=== PATIENT | male | born 1940 | race Caucasian/White ===

== ENCOUNTER → 2024-08-16 07:16 | Outpatient (REF) | payer MEDICARE, BC, SELFPAY | LOC: RCS 07:16 | PROVIDERS: ATTENDING PHYSICIAN Internal Medicine Cardiovascular Disease; FAMILY PHYSICIAN Nurse Practitioner Family | DX: Z95.2 Presence of prosthetic heart valve (principal); R06.02 Shortness of breath | CPT/HCPCS: 78452; 93017; 93225; 93226; A9500 ==

== ENCOUNTER → 2024-08-18 09:50 | Outpatient (REF) | payer MEDICARE, BC, SELFPAY ==
[2024-08-18 11:10] LABS: Blood Urea Nitrogen 29 mg/dl (9-20); Calcium 9.7 mg/dl (8.4-10.2); Carbon Dioxide 30 mmol/L (22-30); Chloride 102 mmol/L (98-107); Glucose 97 mg/dl (70-99); Potassium 4.9 mmol/L (3.5-5.1); Sodium 142 mmol/L (135-145); eGFR 59.26
== END ==
LOC: REG 09:50
PROVIDERS: ATTENDING PHYSICIAN Internal Medicine Cardiovascular Disease
DX: Z95.2 Presence of prosthetic heart valve (principal)
CPT/HCPCS: 36415; 80048

== ENCOUNTER → 2024-09-07 10:12 | Outpatient (REF) | payer MEDICARE, BC, SELFPAY | LOC: RCS 10:12 | PROVIDERS: ATTENDING PHYSICIAN Internal Medicine Cardiovascular Disease; FAMILY PHYSICIAN Nurse Practitioner Family | DX: Z95.2 Presence of prosthetic heart valve (principal) | CPT/HCPCS: 93306 ==

== ENCOUNTER 2024-09-17 11:16 | Inpatient (IN) | payer MEDICARE, BC, SELFPAY ==
[2024-09-10 10:20] VITALS: BMI 28.7
[2024-09-17] VITALS (17 sets, daily range): BP systolic 127–168; BP diastolic 56–113; BMI 26.4
[2024-09-17] MEDS: LOW STRENGTH ASPIRIN 324 MG PO (07:36)
[2024-09-17 08:57] LABS: ACT-LR - POC 265 Seconds (116-155)
[2024-09-17 09:14] LABS: ACT-LR - POC 356 Seconds (116-155)
[2024-09-17 09:40] LABS: ACT-LR - POC 279 Seconds (116-155)
--- NOTE | 2024-09-17 11:04 | ITS.CL.PN ---
[employer] Specialist - Procedure Note
Procedure
Procedure Note:
CARDIAC CATHETERIZATION REPORT
Date of Procedure: 09/17/24
Referring: Dr. Ezekiel Land MD
Indication: angina, positive nuclear stress test
PROCEDURE:
1. Right heart catheterization
2. Left heart catheterization
3. Coronary angiography
4. IVUS diagonal artery
5. PCI with VALERIO to diagonal artery
6. IVUS obtuse marginal artery
7. PCI with VALERIO to obtuse marginal artery
8. IVUS of LCx artery
9. PCI with VALERIO to LCx artery
ACCESS:
6 Liberian right radial artery (closed with TR band)
5 Liberian right antecubital vein
CATHETERS:
1. 5 Liberian balloon wedge/Sheffield-Wing
2. 6 Liberian JL3.5
3. 6 Liberian JR4
4. 6 Liberian XB3.5 guide catheter
HEMODYNAMIC DATA
LV 157/16 (EDP 33) mmHg
AO 151/71 (mean 97) mmHg
RA 14 mmHg
RV 61/6 (EDP 15) mmHg
PA 75/28 (mean 46) mmHg
PCWP 32 mmHg
CO/CI 4.7/2.4 mmHg
PVR 3.0
SVR 1805
CORONARY ANGIOGRAPHY
Dominance: right
LM: large without disease
LAD: moderate caliber vessel giving rise to a small ramus/D1, moderate caliber D2, and moderate caliber D3. There is is a sub-total occlusion of the D3 with EVAN 2 flow distally.
LCx: very large caliber vessel giving rise to a large branching OM1, moderate caliber OM2. There is a patent stent in the proximal aspect of the OM1 with mild ISR and a focal 80% stenosis at the distal stent edge. There is a focal 80% stenosis in
the mid-LCx just after the OM1. There are otherwise mild luminal irregularities.
RCA: moderate caliber vessel giving rise to a moderate caliber RPDA. There is a widely patent stents in the RPDA. There is a 40% focal stenosis in the proximal vessel, 50% focal stenosis in the mid-vessel
INTERVENTIONS - IVUS-guided PCI with DESx3 to D3, OM1, and mid-LCx
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 Recent non-invasive testing had demonstrated LAD territory hypokinesis as well as extensive stress abnormalities in the anterior, anterolateral, apical, and
inferior ferrer. The decision was made to proceed with PCI of the sub-totally occluded diagonal vessel and proceed with PCI of the OM1 and LCx if the patient was tolerating the procedure (given his high filling pressures). 40 IV lasix was given at
the start of the intervention. The left main was engaged with a XB3.5 guide catheter and a short Runthrough coronary wire placed in the diagonal. Initial lesion preparation was performed with a 2.0x12 balloon with mormon of flow. IVUS was
performed demonstrating a 2.5 mm distal reference diameter and 2.75 mm proximal reference diameter. A 2.5x22 mm Brock Latimer VALERIO was selected and deployed at 16 sulaiman. Post-dilation was then performed with a 2.75x15 mm NC from prox edge to mid-stent
at 18 sulaiman. Final IVUS demonstrate excellent stent expansion, sizing, and apposition, with no edge dissections. Final angiography demonstrated an excellent result. The wire was then redirected to the OM1. Initial lesion preparation was performed with
the 2.75x15 NC taken to nominal pressure. IVUS demonstrated a 3.25 mm reference diameter. A 3.0x18 Sturgis Latimer VALERIO was selected and deployed at 16 sulaiman followed by post-dilation with a 3.25x15 mm NC balloon to 20 sulaiman throughout. Final IVUS
demonstrate excellent stent expansion, sizing, and apposition, with no edge dissections. Finally, the wire was redirected to the distal LCx. Initial lesion preparation was performed with the 2.0 mm balloon. IVUS was performed and demonstrated a 2.5
mm reference diameter. A 2.5 mm Brock Latimer VALERIO was deployed at 12 sulaiman. IVUS demonstrate proximal malapposition due to undersizing. The 2.75 mm NC was then used to post-dilated from mid stent back at high pressure. Final angiographic result was
outstanding. The wire and guide were removed and the patient loaded with 600 mg Plavix. The patient tolerated the procedure well.
RADIATION:
Radiation dose (mGy): 23.8
DAP (cm2.Gy): 1424.5
Fluoroscopy time (minutes): 99.5
CONCLUSIONS:
1. Elevated biventricular filling pressures, severe predominantly post-capillary pulmonary hypertension, and normal cardiac output.
2. Severe two-vessel coronary artery disease in a right dominant system.
3. Successful IVUS-guided and optimized PCI of the D3 with placement of a 2.5x22 mm Sturgis Latimer VALERIO, post-dilated to high pressure with a 2.75 mm NC balloon.
3. Successful IVUS-guided and optimized PCI of the OM1 with placement of a 3.0x18 mm Brock Latimer VALERIO, post-dilated to high pressure with a 3.25 mm NC balloon.
3. Successful IVUS-guided and optimized PCI of the D3 with placement of a 2.5x12 mm Brock Latimer VALERIO, post-dilated to high pressure with a 2.75 mm NC balloon.
RECOMMENDATIONS:
1. Expectant management after cardiac catheterization via right radial artery.
2. Admit for overnight monitoring of volume status/renal function. 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
3. Continue DAPT with ASA/Plavix
4. Cont. medical therapy for CAD/HFrEF with BB/ARB, consider addition of SGLT2i.
4. Will need intensification of anti-lipid therapy given CAD disease progression despite LDL 69.
Copy to: Dr. Ezekiel Land MD (cardiology); ERIC Hodgson (PCP)
Signed: Brian Collazo MD, PhD
--- NOTE | 2024-09-17 12:15 | PTCARENOTE ---
Patient admitted to IVU s/p PCI right radial. TR band right radial CDI, POX 94-97%. Right brachial dressing CDI. Reminded of precautions. Assisted to the bathroom, voided large amounts of yellow urine, voided another 400 cc in the urinal. He is AO
x3, [place], b/l heating aids present. SR on telemetry, BP 136/73, call john in reach
--- NOTE | 2024-09-17 15:29 | CM ---
Chart reviewed. Patient is independent of ADLS, lives alone in a [address], 1 [facility], ambulates with a SPC. Patient's daughter lives in [place], he has a friend to assist with no needs. Plan is for the patient to return home. CM to follow
--- NOTE | 2024-09-17 17:17 | W.PN.CD ---
Today's Communication / Plan
-
successful PCI to diagonal, OM1, LCx
cont. DAPT
s/p 40 IV lasix in lab
pending volume status tomorrow will consider increasing home diuretic regimen
running SGLT2i for cost
Impression / Plan
-
Mr. Lawler is a 84 year old man with past medical history of LFLG s/p S3 TAVR 2022, CAD s/p PCI to LCx/RCA (2017), RCA (2022), HTN, HLD, CVA, s/p R CEA 2005, who has experienced worsening chest pressure and HERNANDEZ. He was referred for right and
left heart catheterization which demonstrated elevated biventricular filling pressures and several two vessel CAD. He had successful PCI to the diagonal, OM1, and LCx and was admitted overnight for observation.
# CAD s/p PCI to diagonal, OM1, LCx
-s/p Plavix reload (unsure of home compliance)
-cont. DAPT with asa/plavix
-given disease progression despite LDL 69, will need intensification of anti-lipid regimen, will initiate ezetimibe here but likely will need PCSK9i given prior inability to tolerate higher dose statin
-cont. home metop, omlesartan; room to uptitrate
-monitor BNP, volume status tomorrow
# HFrEF, EF 40
-home BB/ARB
-will run SGLT2i for cost
Physical Exam
Vital Signs/Labs
Vital Signs
Temp Pulse Resp BP Pulse Ox
36.4 C 80 20 145/78 98
09/17/24 15:50 09/17/24 15:00 09/17/24 15:50 09/17/24 15:00 09/17/24 15:50
09/16/24 09/17/24 09/18/24
06:59 06:59 06:59
Actual Weight 85.7 kg
Physical Exam
Constitutional: No acute distress
Cardiovascular: Rhythm & rate is regular and Pedal edema is absent
Respiratory: Respiratory effort normal
Neuro/Psych: AO x 3
Data Reviewed
-
Date of Service: September 17, 2024
Medical Decision Making: Reviewed Test Results
Labs: Labs Reviewed by me
[2024-09-17] MEDS: CRESTOR 10 MG PO (17:40)
[2024-09-17] MEDS: LOPRESSOR 50 MG PO (20:42)
--- NOTE | 2024-09-18 01:34 | PTCARENOTE ---
Patient remains sinus rhythm on the monitor with PAC's noted; Complains of leg cramps relieved by standing up; Denies N/V; Right radial site with ecchymosis noted, soft to palpation, dressing C/D/I; Right brachial dressing C/D/I; Patient remains on
room air; Call john within reach; Plan of care ongoing
[2024-09-18 04:01] VITALS: BP 139/72
[2024-09-18 04:24] VITALS: BMI 24.6
[2024-09-18 04:55] LABS: % Basophils 0.2 % (0-2); % Eosinophils 1.7 % (0-6); % Immature Granulocytes 0.5 % (0-0.5); % Lymphocytes 12.9 % (20.5-51.1); % Monocytes 9.5 % (1.7-9.3); % Neutrophils 75.2 % (42.2-75.2); Absolute Eosinophils 0.1 10^3/uL (0-0.7); Absolute Lymphocytes 1.1 10^3/uL (1.2-3.4); Absolute Monocytes 0.8 10^3/uL (0.1-0.6); Absolute Neutrophils 6.2 10^3/uL (1.4-6.5); Hematocrit 33.7 % (39.0-52.0); Hemoglobin 11.4 g/dL (13.0-18.0); Mean Corp Hgb Conc. 33.8 g/dL (33.0-37.0); Mean Corpuscular Hgb 32.2 pg (27.0-31.0); Mean Corpuscular Volume 95.2 fL (80.0-94.0); Mean Platelet Volume 12.1 fL (7.4-10.4); Nucleated Red Blood Cells % 0 % (-); Platelet Count 144 10^3/uL (130-400); Red Blood Cell Count 3.54 10^6/uL (4.70-6.10); Red Cell Dist. Width 12.7 % (11.5-14.5); White Blood Cell Count 8.2 10^3/uL (4.8-10.8)
[2024-09-18 05:18] LABS: Blood Urea Nitrogen 27 mg/dl (9-20); Calcium 8.9 mg/dl (8.4-10.2); Carbon Dioxide 30 mmol/L (22-30); Chloride 101 mmol/L (98-107); Estimated Creatinine Clearance 52 ml/min; Glucose 92 mg/dl (70-99); HDL Cholesterol 73 mg/dl; LDL Cholesterol, Calculated 51 mg/dl; Potassium 4.1 mmol/L (3.5-5.1); Sodium 140 mmol/L (135-145); Total Cholesterol 138 mg/dl (50-199); Triglyceride 73 mg/dl (10-149); Very Low Density Lipoprotein 14 mg/dl (0-30); eGFR > 60.00
[2024-09-18] MEDS: PLAVIX 75 MG PO (08:32)
[2024-09-18] MEDS: ASPIR LOW (ENTERIC COATED) 81 MG PO (08:32)
[2024-09-18] MEDS: LOPRESSOR 50 MG PO (08:32)
[2024-09-18] MEDS: ZETIA 10 MG PO (08:32)
[2024-09-18] MEDS: BENICAR 20 MG PO (08:32)
[2024-09-18 08:33] VITALS: BP 131/61
--- NOTE | 2024-09-18 08:57 | W.PN.CD ---
Today's Communication / Plan
-
IV lasix again today, home tomorrow
checking dapagliflozin for cost
Impression / Plan
-
Mr. Lawler is a 84 year old man with past medical history of LFLG s/p S3 TAVR 2022, CAD s/p PCI to LCx/RCA (2017), RCA (2022), HTN, HLD, CVA, s/p R CEA 2005, who has experienced worsening chest pressure and HERNANDEZ. He was referred for right and
left heart catheterization which demonstrated elevated biventricular filling pressures and several two vessel CAD. He had successful PCI to the diagonal, OM1, and LCx and was admitted overnight for observation.
# CAD s/p PCI to diagonal, OM1, LCx
-s/p Plavix reload (unsure of home compliance)
-cont. DAPT with asa/plavix
-given disease progression despite LDL 69, will need intensification of anti-lipid regimen, will initiate ezetimibe here but likely will need PCSK9i given prior inability to tolerate higher dose statin
-cont. home metop, omlesartan; room to uptitrate
-will dose with IV lasix again today and plan on discharge tomorrow
# HFrEF, EF 40
-home BB/ARB
-will run SGLT2i for cost
Physical Exam
Vital Signs/Labs
Vital Signs
Temp Pulse Resp BP Pulse Ox
36.1 C 70 16 139/72 96
09/18/24 04:01 09/18/24 06:00 09/18/24 08:31 09/18/24 04:01 09/18/24 08:31
09/17/24 09/18/24 09/19/24
06:59 06:59 06:59
Actual Weight 80 kg
09/18/24 04:12
09/18/24 04:12
Triglycerides 73 mg/dl (10-149) 09/18/24 04:12
LDL Cholesterol, Calc 51 mg/dl 09/18/24 04:12
VLDL Cholesterol, Calc 14 mg/dl (0-30) 09/18/24 04:12
HDL Cholesterol 73 mg/dl 09/18/24 04:12
Physical Exam
Constitutional: No acute distress
Cardiovascular: Rhythm & rate is regular
Respiratory: Respiratory effort normal
Neuro/Psych: AO x 3
Data Reviewed
-
Date of Service: September 18, 2024
Medical Decision Making: Reviewed Test Results
Labs: Labs Reviewed by me
[2024-09-18 08:58] LABS: Glycohemoglobin (HgbA1c) 5.5 % (4.0-5.6)
[2024-09-18] MEDS: LASIX 40 MG IV (09:06)
--- NOTE | 2024-09-18 11:56 | CM ---
Chart reviewed. Patient is independent of ADLS, lives alone in a 1 [facility], 1 [facility], ambulates with a SPC. Patient is not current with VN but is interested. Referral sent to [facility]. Plan is for the [facility] to [facility]. CM to follow
--- NOTE | 2024-09-18 11:58 | CM ---
Pricing on Farxiga and Jardiance through the patient's [facility]. Patient does not have a prescription plan. Patient uses discount cards.
[2024-09-18 12:21] VITALS: BP 129/66
[2024-09-18] MEDS: ALDACTONE 12.5 MG PO (12:40)
[2024-09-18] MEDS: CRESTOR 10 MG PO (17:41)
[2024-09-18] MEDS: LOVENOX 40 MG SC (17:41)
--- NOTE | 2024-09-18 18:07 | PTCARENOTE ---
Patient with no complaints. Using urinal in the bathroom to accurate outputs. Denies shortness of breath. SR with PAC's some non-sustained runs of tachycardia during the day, asymptomatic. Plan of care reviewed, call john in reach
[2024-09-18 18:50] VITALS: BP 139/79
[2024-09-18 19:41] VITALS: BP 132/83
[2024-09-18] MEDS: COREG 6.25 MG PO (19:41)
--- NOTE | 2024-09-18 21:45 | PTCARENOTE ---
Received patient at change of shift. Patient awake, alert, and oriented. Right radial site clean, dry, intact. No ecchymosis or swelling. Right brachial site clean, dry, and intact. Little ecchymosis. BP 132/83, SR 80s with BBB and PACs, 96% on room
air. Patient has no c/o of leg cramps. Discussed plan of care for evening. Patient verbalized understanding. Call john within reach.
[2024-09-18 22:19] VITALS: BP 128/66
[2024-09-19 04:55] VITALS: BP 147/74
[2024-09-19 05:51] LABS: Hematocrit 34.1 % (39.0-52.0); Hemoglobin 11.3 g/dL (13.0-18.0); Mean Corp Hgb Conc. 33.1 g/dL (33.0-37.0); Mean Corpuscular Hgb 31.7 pg (27.0-31.0); Mean Corpuscular Volume 95.5 fL (80.0-94.0); Platelet Count 143 10^3/uL (130-400); Red Blood Cell Count 3.57 10^6/uL (4.70-6.10); Red Cell Dist. Width 12.7 % (11.5-14.5)
[2024-09-19 06:09] LABS: Blood Urea Nitrogen 32 mg/dl (9-20); Calcium 8.8 mg/dl (8.4-10.2); Carbon Dioxide 29 mmol/L (22-30); Chloride 102 mmol/L (98-107); Estimated Creatinine Clearance 58 ml/min; Glucose 95 mg/dl (70-99); Sodium 138 mmol/L (135-145); eGFR > 60.00
[2024-09-19 06:16] LABS: NT-proBNP 8790 pg/ml
[2024-09-19 08:17] VITALS: BP 140/82
[2024-09-19] MEDS: ASPIR LOW (ENTERIC COATED) 81 MG PO (08:17)
[2024-09-19] MEDS: BENICAR 20 MG PO (08:17)
[2024-09-19] MEDS: PLAVIX 75 MG PO (08:17)
[2024-09-19] MEDS: ZETIA 10 MG PO (08:17)
[2024-09-19] MEDS: COREG 6.25 MG PO (08:17)
[2024-09-19] MEDS: ALDACTONE 12.5 MG PO (08:18)
--- NOTE | 2024-09-19 08:31 | PTCARENOTE ---
Pt AOx3, no complaints of pain or discomfort. Standby assist with cane. SR on tele monitor w/BBB, PACs/PVCs. VSS. Possible discharge today. Will continue to monitor, call john within reach.
--- NOTE | 2024-09-19 09:41 | W.DS.TRANS ---
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
-
Discharge Instructions:
Discharge Diagnosis/Procedures Angioplasty and stent x1 to Diagonal, x1 to Left
Circumflex, and x1 to Obtuse Marginal arteries
Diet Low Cholesterol,2 Gram Sodium,Restrict fluids to
48 oz
Driving Restrictions No driving for 24 hours
Blood Work BMP, CBC in 1 week- results to Dr. Land
Other Services Cardiac Rehab
Specialty Instructions Weigh Daily
Instructions: *CBC Heart Failure Instructions
Stand-Alone Forms: DC Instructions- Cath/EP Lab
Changes to Home Medications: Yes
Discharge Medications:
DC Medications w/original date entered in [employer]
aspirin 81 mg tablet,delayed release 81 mg PO DAILY 01/17/18
cyanocobalamin (vitamin B-12) 1,000 mcg tablet 1,000 mcg PO DAILY Supplement 01/17/18
cholecalciferol (vitamin D3) 50 mcg (2,000 unit) capsule (Vitamin D3) 50 mcg PO DAILY Supplement 12/13/22
olmesartan 20 mg tablet 20 mg PO DAILY Blood Pressure 12/13/22
clopidogrel 75 mg tablet 75 mg PO DAILY #90 tabs 12/14/22
nitroglycerin 0.4 mg sublingual tablet 0.4 mg sublingual [id number] PRN chest pain #25 tabs 12/14/22
rosuvastatin 10 mg tablet 10 mg PO QPM #30 tabs 12/14/22
Prevagen 1 tab PO DAILY Supplement 08/11/23
acetaminophen 650 mg tablet,extended release 1,300 mg PO Q12H Pain 08/11/23
furosemide 20 mg tablet 40 mg PO DAILY Fluid Retention/Swelling 09/07/24
carvedilol 6.25 mg tablet 6.25 mg PO BID #180 tabs 09/19/24
ezetimibe 10 mg tablet 10 mg PO DAILY #90 tabs 09/19/24
spironolactone 25 mg tablet 12.5 mg (1/2 x 25 mg) PO DAILY #90 tabs 09/19/24
Home Medication Changes
STOP: metoprolol tartrate
NEW: carvedilol, ezetimibe, spironolactone
Pending Results: No
--- NOTE | 2024-09-19 09:44 | W.PN.UPDATE ---
Addendum entered and electronically signed by Dae Lange MD 09/19/24 11:00:
Asked to comment on some of Dr. Collazo notes.
He is treating HFrEF. By my review of the case another way to document this case is:
Acute on chronic HFrEF
Original Note:
Update Note
Progress Note Update
Pt seen and examined. Chart reviewed. Case discussed with Dr. Collazo. Cath sit normal. Lungs clear. Tele with no VT in more than 12 hours. Few short runs of AT. Home today. Followup arranged.
--- NOTE | 2024-09-19 10:03 | PN.CDI ---
CDI
- -
CDI:
Physician Documentation Request
Admit Date: 09/17/24 11:16
Dear Cardiology,
Please review the following and provide your response in the progress notes.
Clinical Indicators:
- Patient admit for heart failure management after PCI for CAD.
- 09/18 Cardiology 'HFrEF, EF 40'
- 09/19 proBNP 8790
- 09/18 40mg IV Lasix given
- Spironolactone added on discharge
Please clarify which of the following accurately represents the acuity of the HFrEF. Possible options might include:
Acute HFrEF
Acute on chronic HFrEF
Other (please specify)
Use of terms such as suspected, likely, concern for, or probable (associated with a specific diagnosis that is being evaluated, monitored, or treated as if it exists) are acceptable and can be coded in the inpatient setting, when documented at the
time of discharge.
Thank you,
Dahlia Vega RN
CDI Specialist
Please use your independent medical judgment in providing your response.
[2024-09-19 11:16] VITALS: BP 123/76
--- NOTE | 2024-09-19 11:55 | PTCARENOTE ---
Explained discharge instructions and new medication list to pt and friend Gertrude. Pt and Gertrude verbalized understanding. Pt discharge in stable condition and with all belongings.
== END 2024-09-19 12:03 | disposition home or self-care (01) | DRG 321 ==
LOC: IVU 11:16
PROVIDERS: Nurse Practitioner; ADMITTING PHYSICIAN Student in an Organized Health Care Education/Training Program; FAMILY PHYSICIAN Nurse Practitioner Family
PROC: 4A023N8 Measurement of Cardiac Sampling and Pressure, Bilateral, Percutaneous Approach (ICD-10-PCS; 2024-09-17)
PROC: B241ZZ3 Ultrasonography of Multiple Coronary Arteries, Intravascular (ICD-10-PCS; 2024-09-17)
PROC: B2111ZZ Fluoroscopy of Multiple Coronary Arteries using Low Osmolar Contrast (ICD-10-PCS; 2024-09-17)
PROC: 027236Z Dilation of Coronary Artery, Three Arteries with Three Drug-eluting Intraluminal Devices, Percutaneous Approach (ICD-10-PCS; 2024-09-17)
DX: I25.119 Atherosclerotic heart disease of native coronary artery with unspecified angina pectoris (principal); I50.23 Acute on chronic systolic (congestive) heart failure; I47.10 Supraventricular tachycardia, unspecified; I47.19 Other supraventricular tachycardia; I11.0 Hypertensive heart disease with heart failure; E78.5 Hyperlipidemia, unspecified; I49.3 Ventricular premature depolarization; R26.2 Difficulty in walking, not elsewhere classified; M35.3 Polymyalgia rheumatica; I27.29 Other secondary pulmonary hypertension; Z60.2 Problems related to living alone; Z86.19 Personal history of other infectious and parasitic diseases; Z87.891 Personal history of nicotine dependence; Z86.73 Personal history of transient ischemic attack (TIA), and cerebral infarction without residual deficits
CPT/HCPCS: 80048; 80061; 83036; 83880; 85025; 85027; 85347; 92978; 92979; 93005; 93460; C1725; C1753; C1769; C1874; C1887; C1894; C9600; C9601; Q9967

== ENCOUNTER → 2024-09-26 15:54 | Outpatient (REF) | payer MEDICARE, BC, SELFPAY ==
[2024-09-26 16:26] LABS: Hematocrit 33.3 % (39.0-52.0); Mean Corpuscular Hgb 32.4 pg (27.0-31.0); Mean Corpuscular Volume 97.9 fL (80.0-94.0); Mean Platelet Volume 12.5 fL (7.4-10.4); Platelet Count 160 10^3/uL (130-400); Red Cell Dist. Width 12.6 % (11.5-14.5); White Blood Cell Count 5.3 10^3/uL (4.8-10.8)
[2024-09-26 16:31] LABS: Blood Urea Nitrogen 31 mg/dl (9-20); Carbon Dioxide 29 mmol/L (22-30); Chloride 99 mmol/L (98-107); Glucose 108 mg/dl (70-99); Potassium 4.5 mmol/L (3.5-5.1); Sodium 137 mmol/L (135-145); eGFR > 60.00
== END ==
LOC: CLAB 15:54
PROVIDERS: ATTENDING PHYSICIAN Internal Medicine Cardiovascular Disease; FAMILY PHYSICIAN Nurse Practitioner Family
DX: I25.10 Atherosclerotic heart disease of native coronary artery without angina pectoris (principal); I10 Essential (primary) hypertension
CPT/HCPCS: 36415; 80048; 85027

== ENCOUNTER → 2024-11-19 08:26 | Outpatient (REF) | payer MEDICARE, BC, SELFPAY ==
[2024-11-19 11:09] LABS: Albumin 4.5 g/dl (3.5-5.0); Blood Urea Nitrogen 29 mg/dl (9-20); Calcium 9.5 mg/dl (8.4-10.2); Carbon Dioxide 31 mmol/L (22-30); Chloride 102 mmol/L (98-107); Glucose 88 mg/dl (70-99); HDL Cholesterol 86 mg/dl; LDL Cholesterol, Calculated 49 mg/dl; Phosphorus 3.8 mg/dl (2.5-4.5); Potassium 4.3 mmol/L (3.5-5.1); Sodium 140 mmol/L (135-145); Total Cholesterol 147 mg/dl (50-199); Triglyceride 61 mg/dl (10-149); Very Low Density Lipoprotein 12 mg/dl (0-30); eGFR > 60.00
== END ==
LOC: REG 08:26
PROVIDERS: ATTENDING PHYSICIAN Internal Medicine Cardiovascular Disease; FAMILY PHYSICIAN Nurse Practitioner Family
DX: I25.10 Atherosclerotic heart disease of native coronary artery without angina pectoris (principal); I50.20 Unspecified systolic (congestive) heart failure; E78.5 Hyperlipidemia, unspecified
CPT/HCPCS: 36415; 80061; 80069

== ENCOUNTER 2025-02-08 09:54 | Emergency (ER) | payer MEDICARE, BC, SELFPAY ==
[2025-02-08 10:07] VITALS: BP 131/82; BMI 25.6
--- NOTE | 2025-02-08 11:11 | ED.GENMED ---
History of Present Illness
General
Chief Complaint: Musculo-Skeletal Complaint
Source: patient
Time Seen by Provider: 02/08/25 10:06
History of Present Illness
History of Present Illness:
85-year-old male with past medical history of CAD status postacute ID, aortic stenosis, hypertension, hyperlipidemia, previous CVA presenting to the emergency department for evaluation after he was unable to ambulate on his right leg due to
right-sided lower back/hip pain that began last night, continued today accompanied with tingling sensation in the right lower extremity. Patient states that he walked on his treadmill for 25 minutes last night and was doing a stationary bike and
when he went to go get up from the stationary bike he noticed the right sided hip/lower back pain which has gotten to the point where he could not even use his cane because he would still have to put too much pressure on the right leg. Patient did
use a walker this morning but noted this was even difficult. Patient denies any falls, fevers or infectious symptoms, focal weakness or numbness. Social history is noted for patient living on his own. He does take daily Plavix but no other
anticoagulant medications.
Past History
Past History
ED Past Medical History: CAD, HTN, Hypercholesterolemia, ID, Valvular disease and Other (Polymyalgia Rheumatica)
ED Past Surgical History: Cardiac (TAVR), Orthopedic (R rotator cuff repair Dr. Wan) and Other (Carotid artery Dr. Moralez)
Social History
Tobacco: Former smoker
Alcohol: None
Drug: None
Personal:
Living: with family
Employment: Retired
Review of Systems
Review of Systems
All Other Systems: ROS reviewed and negative except as documented in HPI and ROS
Phy Exam
Physical Exam
Physical Exam:
GENERAL: Alert , in no apparent distress at rest but appears uncomfortable with any movement
HEAD: NCAT
EYE: clear conjunctiva b/l
NECK: Supple
ENT: o/p clr, mmm.
CARDIAC: Regular rate and rhythm .
LUNGS: Clear breath sounds bilaterally, no acute respiratory distress, no wheezes/rales/rhonchi
ABDOMEN: Soft, without focal tenderness, no r/g, no cvat
BACK: limited range of motion 2/2 pain, pain worsens with forward flexion, tenderness to right paralumbar region, no midline bony tenderness, no rashes
NEUROLOGICAL: Alert and oriented Patellar deep tendon reflexes intact and equal bilaterally, sensation grossly intact and equal to light touch bilateral lower extremities, sensation grossly intact to light touch
SKIN: Warm and dry, skin intact.
MUSCULOSKELETAL: No edema, well perfused. EHL intact bilaterally
PSYCH: Normal and appropriate interaction.
Scores
Heart Failure Risk
Heart Failure Risk Score: Not Applicable
Heart Score for Chest Pain Patients
STEMI patient?: Not applicable
Withdrawal Assessment of Alcohol
Withdrawal Assessment Completed?: Not applicable
Course
Orders/Labs/Results
Orders:
Orders
02/08/25 10:13
Acetaminophen [Tylenol] 1,000 mg PO NOW STA
Lidocaine [Lidocaine 4% Patch] 1 patch TOPICAL NOW STA
Apply Lidocaine patch(s) to:: right lower back
CR Hip - RT w/wo Pel 2-3 Vw* Urgent
Comment:
Reason For Exam: pain
Include a pelvis x-ray?: Yes
CR Lumbar Spine Comp Min 4 Vw* Urgent
Comment:
Reason For Exam: low back pain
02/08/25 10:14
Case Management Consult ONCE
Case Management Consult: Discharge Planning
Physical Therapy Consult [Pt Eval And Treat] Urgent
Activity Level: Ambulate
Vital Signs
Initial and Last Documented VS:
Initial Vital Signs
Pulse Ox
98
02/08/25 10:05
Last Documented Vital Signs
Temp Pulse Resp BP Pulse Ox
98.2 F 64 20 131/82 97
02/08/25 10:07 02/08/25 10:07 02/08/25 10:07 02/08/25 10:07 02/08/25 10:07
MDM/Problems Addressed
Differential Diagnosis Includes:
Bursitis, tendinitis, sciatica, pathologic fracture, lumbar compression fracture, spinal stenosis, nerve impingement/disc herniation
MDM/Problems Addressed:
85-year-old male presenting to the ER for evaluation of right lower back/hip pain that started last night after he walked on the treadmill and did stationary bike exercises. He states that these exercises are routine for him and not out of the
ordinary. No trauma. No acute neurologic or vascular concerns. Will check x-ray imaging to evaluate. Will treat with Tylenol and lidocaine patch. Disposition pending. I did therapy and case management consult given patient lives on his own and
has had a hard time ambulating since last night
*Radiology
Radiology exam reviewed: preliminary read by ED provider and radiology read reviewed
*Pulse Oximetry
Patient hypoxic: no
*Critical Care Note
Total Time (30-74mins, 75-104mins- exclusive of procedures): Not Applicable
Patient Management
Escalation/DeEscalation of care consider admission/obs:
Patient's x-rays show degenerative changes, no acute fractures. He was able to ambulate steadily with physical therapy and felt as if he could go home. He did note pain control with the Tylenol and lidocaine patch. We did discuss admission if
patient did not feel comfortable being discharged home but ultimately patient did not wish to be admitted. Will send him home with a prescription for Medrol Dosepak and he may increase his Tylenol from 2 tablets once in the morning and once in the
evening to 3 tablets. I notified primary care provider who is aware and will follow-up with the patient on an outpatient basis. Patient aware of return precautions to the ER.
ED Attending Note
-
Portions of this chart may have been created with voice recognition software.� Occasional wrong word or��sound alike� substitutions may have occurred due to the inherent limitations of voice recognition software.
Discharge Plan
Departure
Patient Disposition: Home (Routine Discharge)
Date of Disposition: 02/08/25
Time of Disposition: 12:35
Patient with high blood pressure during this ER visit?: No
Discharge Problem:
Low back pain
Instructions: Low back pain - Discharge instructions
Prescriptions:
New
methylprednisolone [Medrol (Justyn)] 4 mg tablets,dose pack
4 mg PO DIRECTED Qty: 21 0RF
No Action
cyanocobalamin (vitamin B-12) 1,000 MCG tablet
1,000 mcg PO DAILY
aspirin 81 MG tablet,delayed release (DR/EC)
81 mg PO DAILY 0RF
olmesartan 20 mg Tablet
20 mg PO DAILY
cholecalciferol (vitamin D3) [Vitamin D3] 50 mcg (2,000 unit) Capsule
50 mcg PO DAILY
rosuvastatin 10 mg Tablet
10 mg PO QPM Qty: 30 6RF
clopidogrel 75 mg Tablet
75 mg PO DAILY Qty: 90 3RF
nitroglycerin 0.4 MG tablet, sublingual
0.4 mg sublingual [id number] PRN (Reason: chest pain) Qty: 25 3RF
acetaminophen 650 mg Tablet Extended Release
1,300 mg PO Q12H
Prevagen
1 tab PO DAILY
furosemide 20 mg tablet
40 mg PO DAILY
spironolactone 25 mg Tablet
12.5 mg PO DAILY Qty: 90 3RF
carvedilol 6.25 mg Tablet
6.25 mg PO BID Qty: 180 3RF
ezetimibe 10 mg Tablet
10 mg PO DAILY Qty: 90 3RF
Referrals:
Elvira Vasquez CRNP [Family Provider] -
Activity Restrictions/Additional Instructions:
You can increased your tylenol from 2 tablets to 3 tablets in the morning and evening times
Interventions
Interventions:
*Risk Screen - Suicide Last Done: 02/08/25 10:07
*General Assessment Last Done: 02/08/25 10:07
*Neglect/Abuse Screening Last Done: 02/08/25 10:07
*ED- Fall Risk Assessment Last Done: 02/08/25 10:07
*ED COVID-19 Vaccine History Last Done: 02/08/25 10:07
ED-Musculoskeletal Assessment Last Done: 02/08/25 10:07
Discharge Date and Time
Print Language: INDONESIAN
[2025-02-08] MEDS: LIDOCAINE 4% PATCH 1 PATCH TOPICAL (11:45)
[2025-02-08] MEDS: TYLENOL 1000 MG PO (11:45)
--- NOTE | 2025-02-08 18:08 | CM ---
Received consult for discharge planning. Met with patient to obtain information for assessment. Patient stated that he lives alone in a mobile home with one step to enter. He is independent with his ADLs, personal care, dressing and bathing. 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 He has never had VN or been to a SNF. He has a cane, walker, raised toilet seat and grab bars in the shower. He is able to drive and can get himself to his appointments and do all of his own shopping.
Patient stated that he woke up in pain. PA stated that results of tests were negative for anything but arthritis. He was put on a steroid taper. Patient denied the need for VN or SNF placement, he stated that he will be able to do more when he is in
less pain.
Plan: Case management will continue to follow and assist with discharge planning. Home, friend transported.
== END 2025-02-08 13:14 | disposition home or self-care (01) ==
LOC: EMR 09:54
PROVIDERS: EMERGENCY PHYSICIAN Emergency Medicine; FAMILY PHYSICIAN Nurse Practitioner Family
DX: M54.50 Low back pain, unspecified (principal); I25.10 Atherosclerotic heart disease of native coronary artery without angina pectoris; I10 Essential (primary) hypertension; E78.00 Pure hypercholesterolemia, unspecified; Z87.891 Personal history of nicotine dependence
CPT/HCPCS: 99283; 72110; 73502

== ENCOUNTER → 2025-05-30 07:54 | Outpatient (REF) | payer MEDICARE, BC, SELFPAY | LOC: WOUND 07:54 | PROVIDERS: ATTENDING PHYSICIAN Surgery; FAMILY PHYSICIAN Nurse Practitioner Family | DX: L97.425 Non-pressure chronic ulcer of left heel and midfoot with muscle involvement without evidence of necrosis (principal); I73.9 Peripheral vascular disease, unspecified; I87.2 Venous insufficiency (chronic) (peripheral); I25.10 Atherosclerotic heart disease of native coronary artery without angina pectoris; I12.9 Hypertensive chronic kidney disease with stage 1 through stage 4 chronic kidney disease, or unspecified chronic kidney disease; Z86.79 Personal history of other diseases of the circulatory system; I25.2 Old myocardial infarction; N18.9 Chronic kidney disease, unspecified | CPT/HCPCS: 99204 ==

== ENCOUNTER → 2025-06-11 09:08 | Outpatient (REF) | payer MEDICARE, BC, SELFPAY | LOC: WOUND 09:08 | PROVIDERS: ATTENDING PHYSICIAN Surgery; FAMILY PHYSICIAN Nurse Practitioner Family | DX: L97.525 Non-pressure chronic ulcer of other part of left foot with muscle involvement without evidence of necrosis (principal); I73.9 Peripheral vascular disease, unspecified; I87.2 Venous insufficiency (chronic) (peripheral); I25.10 Atherosclerotic heart disease of native coronary artery without angina pectoris; I12.9 Hypertensive chronic kidney disease with stage 1 through stage 4 chronic kidney disease, or unspecified chronic kidney disease; Z87.39 Personal history of other diseases of the musculoskeletal system and connective tissue; Z86.79 Personal history of other diseases of the circulatory system; I25.2 Old myocardial infarction | CPT/HCPCS: 99213 ==

== ENCOUNTER → 2025-06-12 08:21 | Outpatient (REF) | payer MEDICARE, BC, SELFPAY | LOC: RAD 08:21 | PROVIDERS: ATTENDING PHYSICIAN Surgery; FAMILY PHYSICIAN Nurse Practitioner Family | DX: I73.9 Peripheral vascular disease, unspecified (principal); L97.425 Non-pressure chronic ulcer of left heel and midfoot with muscle involvement without evidence of necrosis; I87.2 Venous insufficiency (chronic) (peripheral) | CPT/HCPCS: 93922; 93971 ==

== ENCOUNTER 2025-07-18 09:02 | Day surgery (SDC) | payer MEDICARE, BC, SELFPAY ==
[2025-07-18] VITALS (13 sets, daily range): BP systolic 109–190; BP diastolic 46–103; BMI 27.8
[2025-07-18 10:11] LABS: Hematocrit 30.1 % (39.0-52.0); Hemoglobin 10.0 g/dL (13.0-18.0); Mean Corp Hgb Conc. 33.2 g/dL (33.0-37.0); Mean Corpuscular Volume 100.0 fL (80.0-94.0); Platelet Count 146 10^3/uL (130-400); Red Cell Dist. Width 12.0 % (11.5-14.5)
[2025-07-18 10:29] LABS: INR 1.05; PT 14.2 Sec (11.4-14.6)
[2025-07-18 10:30] LABS: APTT 28.2 Sec (23.4-35.0)
[2025-07-18 10:32] LABS: Blood Urea Nitrogen 24 mg/dl (9-20); Calcium 9.5 mg/dl (8.4-10.2); Carbon Dioxide 28 mmol/L (22-30); Chloride 106 mmol/L (98-107); Estimated Creatinine Clearance 41 ml/min; Glucose 88 mg/dl (70-99); Potassium 4.4 mmol/L (3.5-5.1); Sodium 140 mmol/L (135-145); eGFR 58.89
--- NOTE | 2025-07-18 12:14 | W.SUR.PREOP ---
Pre-Operative Surgical Note
-
I have examined this patient prior to the performance of the scheduled procedure.
The patient's condition is unchanged from the time of the current History and
Physical and the patient is able to undergo the scheduled procedure.
His daughter was at bedside with him and i went over in full detail findings/plan/anticipated outcomes with her.
--- NOTE | 2025-07-18 14:03 | W.SUR.POST ---
Surgical Immediate Post Op
Note
Pre Op Diagnosis: PAD
Post Op Diagnosis: PAD
Procedure Performed: LLE arteriogram, left PT balloon angioplasty and esprit stent placement, balloon angioplasty AT artery
Primary Surgeon: Will
Anesthesia: local and sedation
Estimated Blood Loss: <2cc
Fluids: see anesthesia flowsheet
Drains/Shunts: none
Specimens/Cultures: none
Doppler/Duplex/Angio (Y/N): Y
Complications: none
Operative Findings: Palp PT, weak DP
[2025-07-18] MEDS: PLAVIX 75 MG PO (14:42)
--- NOTE | 2025-07-18 14:51 | OR.RPT ---
Operative Report
Operative Report
PROCEDURE DATE: 07/18/2025
Preoperative diagnosis: Chronic limb threatening ischemia left lower extremity with toe ulceration/osteomyelitis.
Postoperative diagnosis: Same
Procedure:
1. Duplex assisted cannulation of right common femoral artery.
2. Aortogram and pelvic angiogram.
3. Left lower extremity arteriogram with third order vessel catheterization of left posterior tibial and anterior tibial arteries via right common femoral artery puncture.
4. Balloon angioplasty x 2 right posterior tibial artery.
5. Placement of bioabsorbable stent scaffold 3.5 mm x 38 mm Camilo Espirit right proximal posterior tibial artery.
6. Balloon angioplasty long segment left anterior tibial artery chronic occlusion with 3 mm and subsequent 3.5 mm angioplasty balloon.
7. Right femoral angiogram and Perclose percutaneous suture closure.
8. Supervision interpretation.
Surgeon: Will
Product Safety Administrator: None
Complications: None
Anesthesia: Local, sedation
Fluoroscopy:
19.9 min
53 mGy
13.66 gy.cm2
Indications for procedure:
Chronic limb-threatening ischemia with osteomyelitis left foot. Risk/benefits/alternatives of angiography were fully discussed. Patient understood and wished to proceed.
Description of procedure:
Patient was identified, brought to the operating room. Placed on the table in the supine position. After the adequate administration of anesthesia, the patient was prepped and draped in the standard surgical fashion. A standard preoperative
timeout was undertaken and everybody was in agreement with the plan.
The right common femoral artery was accessed with a micropuncture kit under direct duplex ultrasound guidance. A 5 Gu[place]ian sheath was then advanced over a 0.035 inch wire, and a zayas's hook catheter was advanced into the abdominal aorta.
Aortogram and pelvic angiogram was obtained. Findings as follows:
The infrarenal aorta and bilateral common and external iliac arteries were patent with no significant stenosis.
Using a floppy angled hydrophilic wire, the left common femoral artery was cannulated and the catheter was advanced. Left lower extremity arteriogram was obtained. Findings as follows:
Common femoral artery: Patent with no significant stenosis.
Profunda femoris artery: Patent with no significant stenosis.
Superficial femoral artery: Patent with no significant stenosis.
Popliteal artery: Patent with no significant stenosis.
Anterior tibial artery: Patent proximally, moderate stenosis about 3 to 4 cm beyond the origin. In the midsegment of the anterior tibial artery there was a fairly long segment tandem stenoses/occlusions. The entire mid segment was occluded.
Reconstituted flow noted in the distal anterior tibial artery. Patent flow down to the dorsalis pedis artery.
Tibial peroneal trunk: Patent with no significant stenosis.
Peroneal artery: Patent and then sharp occlusion with collateralization 3 to 4 cm beyond its origin. Reconstitution distally but poor filling beyond there.
Posterior tibial artery: Patent but in the proximal 3 to 4 cm there is diffuse severe stenosis/luminal regularities. And then again in the distal third there was a focal severe stenosis. It then crossed the ankle to become the posterior tibial in
the foot. This appeared the dominant runoff vessel to the foot.
At this point I selectively cannulated the superficial femoral artery and then exchanged over a Storq wire for an up and over 5 Guamanian 70 cm sheath. The patient was given an appropriate dose of IV heparin. Next under roadmap assisted guidance I
was able to use a flopping of hydrophilic wire and a CXI catheter to cannulate the left posterior tibial artery. I was able to advance my flopping of hydrophilic wire all the way down posterior tibial artery distally. With some difficulty I was
finally able to traverse the distal focal occlusion. The CXI catheter was able to advance. I then exchanged for a [employer] wire. Next I performed balloon angioplasty of the distal PT stenosis as well as the proximal segment of stenosis with a 3 mm x 4
cm angioplasty balloon. Completion angiogram demonstrated much improved flow and brisk flow into the runoff. However the proximal segment still had some residual stenosis. Relatively focally. Therefore I then used a 3.5 mm x 38 mm Camilo Espirit
bioabsorbable stent scaffold. This was deployed across the stenosis area using the standard slow angioplasty technique. It was followed by noncompliant balloon angioplasty with a 3.5 mm noncompliant balloon. Completion angiogram demonstrated
excellent result with complete resolution of any stenosis. Brisk flow to the runoff. I was very satisfied with this.
At this point I selectively cannulated the anterior tibial artery using a floppy angled hydrophilic wire and then advanced a CXI catheter. Then under roadmap assisted guidance I tried to traverse the area of stenosis with a floppy angled wire but
was unable to do so. I then exchanged for a [employer] wire but this could not cross. I therefore then tried a Vikash steerable wire. I was able to steer this through the occlusion completely and gain wire access into the reconstituted distal anterior
tibial artery. Once I did this, I was able to angioplasty with a 3 mm x 15 cm angioplasty balloon with 2 overlapping inflations to encompass the long segment occlusion/stenoses in the anterior tibial artery. Completion angiogram now demonstrated
improved flow and a good flow channel. However there is still significant residual stenoses diffusely. Therefore I then used a 3.5 mm balloon with overlapping inflations again. Completion angiogram demonstrated much improvement. Still some mild
to moderate residual stenoses but the flow had significantly improved and the pace of the flow had significantly improved. At this point I was satisfied.
I then withdrew the sheath back to the right external iliac artery over a 0.035 inch wire. Right femoral angiogram demonstrated good puncture of the right common femoral artery. Therefore then used a [employer]se percutaneous suture closure to
close the common femoral artery. Manual pressure was also applied and protamine was given reverse the heparin. Hemostasis was fully achieved. The patient tolerated the procedure well. Upon completion he had a palpable posterior tibial pulse
1+/2+, as well as a 1+ DP pulse palpable.
[2025-07-18] MEDS: NSS 1000 IV (15:47)
== END 2025-07-18 17:30 | disposition home or self-care (01) ==
LOC: CATH 09:02
PROVIDERS: ATTENDING PHYSICIAN Surgery Vascular Surgery; OTHER PHYSICIAN Internal Medicine Cardiovascular Disease; PRIMARYCARE PHYSICIAN Nurse Practitioner Family
DX: I70.245 Atherosclerosis of native arteries of left leg with ulceration of other part of foot (principal); L97.529 Non-pressure chronic ulcer of other part of left foot with unspecified severity; M86.8X7 Other osteomyelitis, ankle and foot
CPT/HCPCS: 37230; 37232; 75710; 80048; 85027; 85610; 85730; 86850; 86900; 86901; 93005; C1725; C1760; C1769; C1874; C1887; C1894

== ENCOUNTER → 2025-08-05 10:48 | Outpatient (REF) | payer MEDICARE, BC, SELFPAY ==
[2025-08-05 12:12] LABS: Hematocrit 32.1 % (39.0-52.0); Hemoglobin 9.9 g/dL (13.0-18.0); Mean Corp Hgb Conc. 30.8 g/dL (33.0-37.0); Mean Corpuscular Volume 104.6 fL (80.0-94.0); Nucleated Red Blood Cells % 0 % (-); Platelet Count 189 10^3/uL (130-400); Red Cell Dist. Width 12.3 % (11.5-14.5)
[2025-08-05 13:06] LABS: ALT (SGPT) 21 U/L (0-50); AST (SGOT) 34 U/L (17-59); Albumin 4.5 g/dl (3.5-5.0); Alkaline Phosphatase 97 U/L (38-126); Blood Urea Nitrogen 31 mg/dl (9-20); Calcium 9.4 mg/dl (8.4-10.2); Carbon Dioxide 28 mmol/L (22-30); Chloride 106 mmol/L (98-107); Glucose 85 mg/dl (70-99); Potassium 4.6 mmol/L (3.5-5.1); Sodium 138 mmol/L (135-145); Total Protein 7.1 g/dl (6.3-8.2); eGFR 58.89
== END ==
LOC: RCS 10:48
PROVIDERS: ATTENDING PHYSICIAN Podiatrist Foot Surgery; FAMILY PHYSICIAN Nurse Practitioner Family
DX: Z01.818 Encounter for other preprocedural examination (principal)
CPT/HCPCS: 36415; 80053; 85025; 93005

== ENCOUNTER 2025-08-16 06:14 | Day surgery (SDC) | payer MEDICARE, BC, SELFPAY ==
--- NOTE | 2025-08-06 14:11 | PTCARENOTE ---
Pt states he was not given instructions for his plavix. He took it this morning. Reva in Dr. Ribeiro's office was made aware.
[2025-08-16 11:46] VITALS: BMI 24.1
[2025-08-16 11:48] VITALS: BP 133/70; BMI 24.1
[2025-08-16] MEDS: BICITRA 30 ML PO (12:10)
[2025-08-16] MEDS: PEPCID 20 MG IV (12:12)
[2025-08-16] MEDS: NORMOSOL-R/PLASMALYTE-A 1000 IV (12:13)
[2025-08-16 13:15] VITALS: BP 170/66
[2025-08-16 13:30] VITALS: BP 178/74
== END 2025-08-16 14:11 | disposition home or self-care (01) ==
LOC: SDS 06:14
PROVIDERS: ATTENDING PHYSICIAN Podiatrist Foot Surgery
DX: M86.9 Osteomyelitis, unspecified (principal); B96.5 Pseudomonas (aeruginosa) (mallei) (pseudomallei) as the cause of diseases classified elsewhere; B95.7 Other staphylococcus as the cause of diseases classified elsewhere
CPT/HCPCS: 11044; 87070; 87075; 87077; 87147; 87176; 87186; 87205; 88304; 88311

== ENCOUNTER → 2025-08-21 10:54 | Outpatient (REF) | payer MEDICARE, BC, SELFPAY | LOC: RAD 10:54 | PROVIDERS: ATTENDING PHYSICIAN Surgery Vascular Surgery; FAMILY PHYSICIAN Nurse Practitioner Family | DX: I73.9 Peripheral vascular disease, unspecified (principal) | CPT/HCPCS: 93922; 93925 ==